=== PATIENT | male | born 2000 | race African-American/Black ===

== ENCOUNTER 2023-07-21 21:59 | Emergency (ER) | payer BC, SELFPAY ==
[2023-07-21 22:30] LABS: Basophils Percent Auto 0.6 % (0.2-1.2); Eosinophils Absolute Auto 0.3 K/mm3 (0-0.3); Eosinophils Percent Auto 4.7 % (0-4.4); Hematocrit 42.8 % (42.0-52.0); Hemoglobin 13.3 g/dL (14.0-18.0); Immature Granulocyte Absolute 0.02 K/mm3 (0.00-0.031); Immature Granulocyte Percent A 0.3 % (0-0.5); Lymphocytes Absolute Auto 1.79 K/mm3 (0.9-3.2); Lymphocytes Percent Auto 24.8 % (18.3-44.2); Mean Corpuscular HGB Conc 31.1 g/dl (32-36); Mean Corpuscular Volume 86.8 fl (80-100); Mean Platelet Volume 9.9 fl (7.4-10.4); Monocytes Absolute Auto 0.6 K/mm3 (0.1-0.6); Monocytes Percent Auto 8.7 % (2.6-8.5); Neutrophils Absolute Auto 4.4 K/mm3 (1.3-6.7); Neutrophils Percent Auto 60.9 % (45.5-73.1); Platelet Count Result 362 k/mm3 (150-375); Red Blood Count 4.93 M/mm3 (4.6-6.20); Red Cell Distribution Width 14.8 % (11.5-14.5); White Blood Count 7.2 K/mm3 (4.5-10.0)
--- NOTE | 2023-07-21 22:34 | ED.PSYCH ---
HPI - Psych General Chief Complaint: Psychiatric Symptoms Stated Complaint: SI Source: patient Mode of arrival: EMS Limitations: no limitations History of Present Illness HPI Narrative: Patient is a 23-year-old male with past medical history of depression, who presents to the ED via EMS with report of SI. Patient reports he has been feeling depressed lately. He states he almost got kicked out of his house yesterday which triggered him. He began having suicidal ideation yesterday. He states he had a thought of going to buy a gun to kill himself with. He admits to having these thoughts but states he did not intend to act on them. He talked to his counselor today at work and mentioned these thoughts. PD and EMS was then called to bring the patient here. Patient states he has not had any suicidal thoughts today like he did yesterday. He mentions he was in rehab for alcohol in May. Denies any EtOH or drug use today. Denies any other complaints. Denies HI, AVH. Patient sees Dr. Thomas with psychiatry. He is on lithium, abilify, and hydroxyzine. He reports compliance with these medications. Review of Systems Review of Systems: CONSTITUTIONAL: Denies fever, chills, or sweats. CARDIOVASCULAR: Denies chest pain. RESPIRATORY: Denies dyspnea. GASTROINTESTINAL: Denies abdominal pain, nausea, vomiting. NEUROLOGIC: Denies headache, numbness, or weakness. PSYCHIATRIC: See HPI. All systems reviewed & are unremarkable except as noted in HPI and below PMFSH Social History Social History Substance use type: does not use, marijuana and crack/cocaine Exam Narrative: GENERAL: Well appearing, obese with BMI of 34.7, non-toxic, in no acute distress. HEAD: Normocephalic, atraumatic. NECK: Supple. No adenopathy, no masses. RESPIRATORY: Airway patent, respirations nonlabored. Clear to auscultation bilaterally, no rales, rhonchi, wheezing. CARDIOVASCULAR: Regular rate and rhythm without murmurs, rubs, or gallops. Radial pulses 2+ and equal bilaterally. ABDOMINAL: Soft, nontender, nondistended, no hepatosplenomegaly. Normoactive BS. MUSCULOSKELETAL: Moves all extremities. Strength/ROM intact without gross deformities. SKIN: Warm, dry, normal color. No rashes. NEURO: A&O X3. Speech clear. Cranial nerves II-XII grossly intact. Steady gait. No ataxic movements. PSYCHIATRIC: Flat affect, depressed mood. Normal interaction. Course Vital Signs Vital signs: Vital Signs Temperature 97.7 F 07/22/23 00:32 Pulse Rate 56 L 07/22/23 00:32 Respiratory Rate 15 07/22/23 00:32 Blood Pressure 120/68 07/22/23 00:32 Pulse Oximetry 99 07/22/23 00:32 Temperature 97.7 F 07/22/23 00:32 Pulse Rate 56 L 07/22/23 00:32 Respiratory Rate 15 07/22/23 00:32 Blood Pressure 120/68 07/22/23 00:32 Pulse Oximetry 99 07/22/23 00:32 MDM - Psych MDM Narrative Medical decision making narrative: Patient presented to ED with depression with suicidal ideation, thoughts of a plan yesterday, denying SI today. PD notified by patient's counselor at work, submitted an involuntary petition for patient. ED psych work-up initiated. Patient reported to me compliance with his lithium medication however level here less than 0.2. Does not appear he has been taking this. Remainder of work-up unremarkable. 0026 - Patient medically cleared to undergo psychiatric evaluation by crisis. Crisis evaluated patient and determined him to meet criteria for safety planning and discharge home. He reports he is in a better place than he was yesterday and is actively denying any intent to act on suicidal ideation. Denies suicidal ideation today. Does admit to missing his medications. Crisis will phone follow-up with patient every day for the next 30 days, provide medication follow-up, and get patient in touch with a therapist. He does already have a psychiatrist. Patient feels comfortable with
[2023-07-21 22:43] LABS: Acetaminophen < 10 ug/mL (10-30); Ethanol < 10 mg/dL (<10); Salicylate < 1.0 mg/dL (2-20)
[2023-07-21 22:44] LABS: Alanine Aminotransferase 38 U/L (6-50); Albumin Level 4.3 g/dL (3.5-5.1); Alkaline Phosphatase 99 U/L (38-126); Anion Gap 7 mmol/L (8-16); Aspartate Amino Transferase 40 U/L (17-59); Bilirubin,Total 0.8 mg/dL (0.2-1.3); Blood Urea Nitrogen 13 mg/dL (9-20); Carbon Dioxide 29 mmol/L (22-30); Chloride 104 mmol/L (98-107); Estimated CRCL calculation 106 ml/min; Estimated Glomerular Filt Rate > 60; Glucose 92 mg/dL (65-110); Potassium 4.2 mmol/L (3.4-5.0); Sodium 140 mmol/L (137-145)
[2023-07-21 22:48] LABS: Appearance Urine Clear (Clear); Bilirubin Urine Negative (Negative); Blood Urine Negative (Negative); Color Urine Yellow (Yellow); Glucose Urine UA Negative (Negative); Ketones Urine Trace mg/dL (Negative); Leukocyte Esterase Ur Negative LEU/UL (Negative); Nitrate Urine Negative (Negative); Protein Urine Negative (Negative); pH Urine 6.5 (5.0-9.0)
[2023-07-21 22:58] LABS: Add Urine Microscopic? NO; Specific Grav Ur 1.036 (1.001-1.035)
--- NOTE | 2023-07-21 23:21 | PC.NURSE ---
Report received from CHELSY Otero. Assumed care of patient at this time. Sitter remains at bedside.
--- NOTE | 2023-07-21 23:22 | PC.NURSE ---
Called lab to add on UDS, spoke to Sonal, she states she will add it on.
[2023-07-21 23:23] LABS: Lithium < 0.2 mmol/L (0.6-1.2)
[2023-07-22 00:10] LABS: Amphetamine Screen Urine Negative (Negative); Barbiturate Screen Urine Negative (Negative); Benzodiazepines Screen Urine Negative (Negative); Cannabinoid Screen Urine Negative (Negative); Cocaine Screen Urine Negative (Negative); Methadone Screen Urine Negative (Negative); Opiate Screen Urine Negative (Negative); Phencyclidine Screen Urine Negative (Negative)
[2023-07-22 00:20] LABS: Influenza A QL RT-PCR Negative (Negative); Influenza B QL RT-PCR Negative (Negative); SARS-CoV-2 RNA PCR Negative (Negative)
[2023-07-22 00:32] VITALS: BP 120/68; PULSE 56; RESP 15; TEMP 36.5; O2SAT 99
== END 2023-07-22 02:56 | disposition home or self-care (01) ==
PROVIDERS: Emergency Provider Physician Assistant
DX: F32.A Depression, unspecified (principal); R45.851 Suicidal ideations; Z20.822 Contact with and (suspected) exposure to COVID-19
CPT/HCPCS: 36415; 80053; 80178; 80307; 81003; 84443; 85025; 87636; 99284